=== PATIENT | female | born 1990 | race Caucasian/White ===

== ENCOUNTER 2017-01-19 16:15 | Emergency (ER) | payer OTHER ==
[~2017-01-19] VITALS: Ht 160 cm; Wt 65.0 kg
[~2017-01-19 16:15] MED LIST: FIORTAB4 PO; Z.0.UNKNOWN
[2017-01-19 16:18] VITALS: BP 187/84; PULSE 73; RESP 18; TEMP 98.1; O2SAT 99
[2017-01-19] MEDS ORDERED: diphenhydrAMINE HCL 50 MG CAP PO ONE (17:00)
[2017-01-19] MEDS ORDERED: ONDANSETRON ODT 4 MG TAB PO ONE (17:00)
--- NOTE | 2017-01-19 17:20 | RADRPT ---
EXAM DATE/TIME: 01/19/2017 17:07 [place] COMPARISON: CT BRAIN W/O CONTRAST, October 31, 2011, 17:12. INDICATIONS : Persistent headache. RADIATION DOSE: 31.96 CTDIvol (mGy) MEDICAL HISTORY : Hydrocephalus. SURGICAL HISTORY : [facility] shunt. ENCOUNTER: Initial ACUITY: 1 day PAIN SCALE: 7/10 LOCATION: cranial TECHNIQUE: Multiple contiguous axial images were obtained of the head. Using automated exposure control and adj ustment of the mA and/or kV according to patient size, radiation dose was kept as low as reasonably a chievable to obtain optimal diagnostic quality images. FINDINGS: CEREBRUM: The patient has a right parietal ventriculostomy catheter again noted with its tip in the anterior mi dline. Ventricles remain normal in size except for ex vacuo dilatation of the posterior left lateral ventricle similar to 2010 POSTERIOR FOSSA: The cerebellum and brainstem are intact. The 4th ventricle is midline. The cerebellopontine angle i s unremarkable. EXTRACRANIAL: The visualized portion of the orbits is intact. SKULL: The calvaria is intact. No evidence of skull fracture. CONCLUSION: Right-sided ventriculostomy catheter in good position. Stable dilatation of the posterior left ventri cular system. No evidence of hemorrhage, acute edema or mass. Gilson Hou MD on January 19, 2017 at 17:16 Board Certified Radiologist. This report was verified electronically.
--- NOTE | 2017-01-19 17:35 | PD ---
HPI Chief Complaint: Headache Time Seen by Provider: 16:40 Travel History International Travel<30 days: No Contact w/Intl Traveler<30days: No Traveled to known affect area: No History of Present Illness HPI 26-year-old female presents to the emergency Department with complaint of headache since yesterday with gradual onset. Patient is legally blind. History of CISO shunt and is concerned about the CISO shunt since this headache is not normal for her. History of headaches. This headache is not consistent with other headaches. Headache is all over and is typically unilateral. Fluctuates in intensity. Denies change in vision. Reports photophobia. Reports nausea without vomiting; denies nausea at this time. Denies change in mentation, confusion, disorientation, slurred speech. Denies focal deficits or weakness. Rates headache 8/10 at this time. Has tried taking ibuprofen which normally helps her headaches, but has not helped this time. Allergies to contrast media. No other modifying factors or associated signs and symptoms. PFSH Past Medical History Cerebral Palsy: Yes Diminished Hearing: No Musculoskeletal: Yes (BONE GRAFT IN 2010 FROM LEFT FOOT TO R LEG ) Neurologic: Yes (CEREBRAL PALSY WITH SHUNT ) ?: Not LMP: 11/2016 Past Surgical History Neurologic Surgery: Yes (AV SHUNT (#2) PALCED AT THE AGE OF 13YRS HYDROCEPHALUS ) Social History Alcohol Use: No Tobacco Use: No Substance Use: No Allergies-Medications (Allergen,Severity, Reaction): Coded Allergies: Contrast Media (Verified Allergy, Severe, RASH, 01/19/17) Reported Meds & Prescriptions Reported Meds & Active Scripts Active Zofran Odt (Ondansetron Odt) 4 Mg Tab 4 Mg SL Q8HR PRN Ibuprofen 800 Mg Tab 800 Mg PO Q6HR PRN Review of Systems Except as stated in HPI: all other systems reviewed are Neg Physical Exam Narrative GENERAL: Well-nourished, well-developed female patient, in no acute distress; legally blind SKIN: Warm and dry. HEAD: Atraumatic. Normocephalic. No facial droop. Tongue midline. EYES: Pupils equal and round at 3 mm with brisk reaction. No scleral icterus. No injection or drainage. PERRLA. EOMI. ENT: Mucosa pink and moist. Airway patent. NECK: Trachea midline. No lymphadenopathy. CARDIOVASCULAR: Regular rate and rhythm. No murmur appreciated. RESPIRATORY: No accessory muscle use. Clear to auscultation. Breath sounds equal bilaterally. GASTROINTESTINAL: Abdomen soft, non-tender, nondistended. Hepatic and splenic margins not palpable. Bowel sounds are active 4 quadrants. MUSCULOSKELETAL: No obvious deformities. No clubbing. No cyanosis. No edema. NEUROLOGICAL: Awake and alert. Oriented 3. No obvious cranial nerve deficits. Motor grossly within normal limits. Normal speech. No ataxia. No mid -line drift. Moves all extremities. 5/5 strength to all extremities. PSYCHIATRIC: Appropriate mood and affect; insight and judgment normal. Data Data Last Documented VS Vital Signs Date Time Temp Pulse Resp B/P Pulse Ox O2 Delivery O2 Flow Rate FiO2 01/19/17 18:26 61 16 124/78 100 Room Air 01/19/17 16:[address] Brain W/O Iv Contrast(Rout) (01/19/17 ) Ed Urine Pregnancytest Poc (01/19/17 16:48) Diphenhydramine (Benadryl) (01/19/17 17:00) Ondansetron Odt (Zofran Odt) (01/19/17 17:00) Ketorolac Inj (Toradol Inj) (01/19/17 17:45) MDM Medical Decision Making Medical Screen Exam Complete: Yes Emergency Medical Condition: Yes Medical Record Reviewed: Yes Differential Diagnosis Hydrocephalus, CISO shunt malfunction, cephalgia Narrative Course 26-year-old female with history of hydrocephalus and CISO shunt with headache since yesterday that is not a normal headache for her. Concerned of the CISO shunt. Patient is legally blind. Neuro exam is unremarkable. Urine negative. Benadryl and Zofran administered in the ER. CT head ordered. 1736: Right-sided ventriculostomy catheter in good position. Stable dilatation of the posterior left ventricular system. No evidence of hemorrhage, acute edema or mass. Toradol ordered. 1827: On reevaluation the patient reports her headache is "gone." Ibuprofen and Zofran prescribed for home. Patient is medically cleared and stable for discharge. Discussed reasons to return to the emergency department. Instructed patient to follow up with primary care provider. Patient agrees with treatment plan. The patients vital signs are stable and the patient is stable for outpatient follow-up and treatment. Patient discharged home, stable and in no acute distress. Diagnosis Primary Impression: Headache Qualified Code: R51 - Nonintractable headache, unspecified chronicity pattern , unspecified headache type Referrals: Primary Care Physician Patient Instructions: Acute Headache (ED), General Instructions Departure Forms: Tests/Procedures Additional Instructions: Ibuprofen or Tylenol as directed and as needed to reduce headache Get plenty of rest: do not over sleep rest and relax in a dark, quiet room as needed Place an ice pack on the back of her neck to reduce head pain as needed Keep a headache diary of what triggers her headaches and what treatment is most effective Avoid identifiable triggers Avoid smoking, alcohol and caffeine consumption Reduce stress Follow-up with primary care provider within 1-2 days Follow-up with neurology Return immediately to the emergency department with worsening symptoms Med/Other Pt SpecificInfo: Prescription(s) given Scripts Ondansetron Odt (Zofran Odt)4 Mg Tab4 Mg SL Q8HR PRN (Nausea/Vomiting) #10 TAB Ref 0 Prov:Jannet Dimas 01/19/17 Ibuprofen 800 Mg Pmr397 Mg PO Q6HR PRN (PAIN) #30 TAB Ref 0 Prov:Jannet Dimas 01/19/17 Disposition: 01 DISCHARGE HOME Condition: Stable Jannet Dimas Jan 19, 2017 17:35
[2017-01-19] MEDS ORDERED: KETOROLAC TROMETHAMINE 60 MG/2 ML (IM) VIAL IM ONE (17:45)
[2017-01-19] MEDS ORDERED: IBUP800T23 PO (17:50)
[2017-01-19] MEDS ORDERED: ZOFR4TAB3 SL (17:50)
[2017-01-19 18:26] VITALS: BP 124/78; PULSE 61; RESP 16; O2SAT 100
== END 2017-01-19 18:45 | disposition home or self-care (01) ==
LOC: NEPB 16:15
DX: R51 Headache (principal); Z98.2 Presence of cerebrospinal fluid drainage device
CPT/HCPCS: 70450; 84703; 96372; 99284; J1885; Q0163